=== PATIENT | female | born 1965 | race Two or more races ===

== ENCOUNTER 2023-04-13 18:50 | Emergency (ER) | payer MEDICAID ==
[~2023-04-13] VITALS: Ht 154.9 cm; Wt 77.1 kg
[2023-04-13 19:10] VITALS: BP 168/61; PULSE 107; RESP 16; O2SAT 97
== END 2023-04-13 22:26 | disposition left against medical advice (07) ==
LOC: ER 18:50
DX: R51.9 Headache, unspecified (principal); Z53.21 Procedure and treatment not carried out due to patient leaving prior to being seen by health care provider